=== PATIENT | female | born 1965 | race Asian ===

== ENCOUNTER 2016-12-12 16:18 | Emergency (ER) | payer OTHER ==
[2016-12-12 16:24] VITALS: BP 123/81; PULSE 79; TEMP 97.7; BMI 23.3
--- NOTE | 2016-12-12 16:43 | PDOC ---
History of Present Illness - General History Source: Patient Exam Limitations: No Limitations - History of Present Illness Initial Comments: 12/12/16 17:02 The patient is a 51 year old female, with a significant past medical history of migraines, hypothyroidism, and GERD, who presents to the emergency department complaining of a headache since earlier this afternoon. Patient reports she woke up feeling fine, but while at work she developed a mild headache. Patient reports her headache is dull in nature, bilateral and mainly frontal. Patient reports she tried to have lunch to see if her headache would resolved, but she became nauseous and experienced two emetic episodes(nonbloody/nonbilious). Patient rates her headache a 9/10. She has not taken anything for the pain. She reports she feels cold and mild photophobia, but denies any blurry vision, dizziness, or vertigo. She denies any abdominal pain, diarrhea, constipation, or changes in urination patterns. She denies any recent travel or sick contacts. Allergies: NKDA Past Surgical History: Left ovarian cyst removal Social History: Non smoker. No ETOH or recreational drug use. <Rodolfo Hidalgo - Last Filed: 12/12/16 17:03> <Nuris Morales - Last Filed: 12/12/16 20:05> - General Chief Complaint: Headache Stated Complaint: HEADACHE Past History <Rodolfo Hidalgo - Last Filed: 12/12/16 17:03> - Past Medical History Anemia: No Asthma: No Cancer: No Cardiac Disorders: No CVA: No COPD: No CHF: No Dementia: No Diabetes: No GI Disorders: Yes (GERD) Disorders: No HTN: No Hypercholesterolemia: No Liver Disease: No Seizures: No Thyroid Disease: Yes (hypo) - Surgical History Abdominal Surgery: Yes (left ovarian cyst removed) Appendectomy: No Cardiac Surgery: No Cholecystectomy: No Lung Surgery: No Neurologic Surgery: No Orthopedic Surgery: No - Psycho/Social/Smoking Cessation Hx Anxiety: No Suicidal Ideation: No Smoking Status: No Smoking History: Never smoked Have you smoked in the past 12 months: No Number of Cigarettes Smoked Daily: 0 Hx Alcohol Use: No Drug/Substance Use Hx: No Substance Use Type: None Hx Substance Use Treatment: No <Nuris Morales - Last Filed: 12/12/16 20:05> - Past Medical History Allergies/Adverse Reactions: Allergies Allergy/AdvReac Type Severity Reaction Status Date / Time No Known Drug Allergies Allergy Verified 12/12/16 16:21 Home Medications: Ambulatory Orders Levothyroxine [Synthroid -] 50 mcg PO DAILY 11/30/11 Review of Systems - Review of Systems Able to Perform ROS?: Yes Comments:: 12/12/16 17:02 GENERAL/CONSTITUTIONAL: Yes: +cold. No fever or chills. No weakness. HEAD, EYES, EARS, NOSE AND THROAT: Yes: +photophobia. No ear pain or discharge. No sore throat. CARDIOVASCULAR: No chest pain or shortness of breath. RESPIRATORY: No cough, wheezing, or hemoptysis. GASTROINTESTINAL: Yes: +nausea, +vomiting. No diarrhea or constipation. GENITOURINARY: No dysuria, frequency, or change in urination. MUSCULOSKELETAL: No joint or muscle swelling or pain. No neck or back pain. SKIN: No rash NEUROLOGIC: Yes: +headache. No vertigo, loss of consciousness, or change in strength/sensation. ENDOCRINE: No increased thirst. No abnormal weight change. HEMATOLOGIC/LYMPHATIC: No anemia, easy bleeding, or history of blood clots. ALLERGIC/IMMUNOLOGIC: No hives or skin allergy. <Rodolfo Hidalgo - Last Filed: 12/12/16 17:03> *Physical Exam - Vital Signs Last Vital Signs Temp Pulse Resp BP Pulse Ox 97.7 F 79 18 123/81 100 12/12/16 16:22 12/12/16 16:22 12/12/16 16:22 12/12/16 16:22 12/12/16 16:22 - Physical Exam Comments: 12/12/16 17:02 GENERAL: Awake, alert, and fully oriented, in no acute distress HEAD: No signs of trauma EYES: PERRLA, EOMI, sclera anicteric, conjunctiva clear ENT: Auricles normal inspection, hearing grossly normal, nares patent, oropharynx clear without exudates. Moist mucosa NECK: Normal ROM, supple, no lymphadenopathy, JVD, or masses LUNGS: Breath sounds equal, clear to auscultation bilaterally. No wheezes, and no crackles HEART: Regular rate and rhythm, normal S1 and S2, no murmurs, rubs or gallops ABDOMEN: Soft, nontender, normoactive bowel sounds. No guarding, no rebound. No masses EXTREMITIES: Normal range of motion, no edema. No clubbing or cyanosis. No cords, erythema, or tenderness NEUROLOGICAL: Cranial nerves II through XII grossly intact. Normal speech, normal gait. Nonfocal. No meningeal signs. SKIN: Warm, Dry, normal turgor, no rashes or lesions noted. <Rodolfo Hidalgo - Last Filed: 12/12/16 17:03> - Vital Signs Last Vital Signs Temp Pulse Resp BP Pulse Ox 97.7 F 79 18 123/81 100 12/12/16 16:22 12/12/16 16:22 12/12/16 16:22 12/12/16 16:22 12/12/16 16:22 <Nuris Morales - Last Filed: 12/12/16 20:05> ED Treatment Course - LABORATORY CBC & Chemistry Diagram: 12/12/16 17:50 12/12/16 17:50 <Nuris Morales - Last Filed: 12/12/16 20:05> Medical Decision Making - Medical Decision Making 12/12/16 19:56 a/p: 51yo female gradual onset of pascual today assoc with n/v. Mild photophobia. Neuro intact. Prior head ct without acute findings. Pt without meningeal findings -labs -ivf hydration -meds -re-eval 12/12/16 19:59 re-eval: pt feeling better. Discuss lab results. pt requesting to go home. discussed that pt should follow up with her PMD and with a neurologist. Pt seen in the ED before for headche. Pt agrees with the plan. Pt will be d/c to home. <Nuris Morales - Last Filed: 12/12/16 20:05> *DC/Admit/Observation/Transfer - Attestations Scribe Attestion: 12/12/16 17:02 Documentation prepared by Rodolfo Hidalgo, acting as senior medical writer for Nuris Morales DO. <Rodolfo Hidalgo - Last Filed: 12/12/16 17:03> - Discharge Dispostion Admit: No - Attestations Physician Attestion: 12/12/16 20:05 I, Dr. Nuris Kurkowski, DO, attest that this document has been prepared under my direction and personally reviewed by me in its entirety. I further attest, that it accurately reflects all work, treatment, procedures and medical decision -making performed by me. <Nuris Morales - Last Filed: 12/12/16 20:05> Diagnosis at time of Disposition: Headache - Discharge Dispostion Disposition: HOME Condition at time of disposition: Stable - Referrals Referrals: Maximus Norris MD [Primary Care Provider] - Lauro Begum MD [Staff Physician] - - Patient Instructions Printed Discharge Instructions: DI for Headache Additional Instructions: Please follow up with your PMD and with the neurologist. Please return to the ED with any further concerns. - Post Discharge Activity Work/School Note: Back to Work
[2016-12-12] MEDS ORDERED: SODIUM CHLORIDE 0.9% 1000 ML INFUS.BAG IV ONE (16:44)
[2016-12-12] MEDS ORDERED: METOCLOPRAMIDE HCL INJECTION 10 MG/2 ML VIAL IVPB ONE (16:44)
[2016-12-12] MEDS ORDERED: KETOROLAC TROMETHAMINE 15 MG/ML VIAL IVPUSH ONE (16:56)
[2016-12-12] MEDS ORDERED: METOCLOPRAMIDE HCL INJECTION 10 MG/2 ML VIAL ONE (17:39)
[2016-12-12] MEDS ORDERED: KETOROLAC TROMETHAMINE 15 MG/ML VIAL ONE (17:39)
[2016-12-12 18:15] LABS: BASOPHIL 0.4 % (0-2.0); MCHC 33.6 g/dl (32.0-36.0); MEAN CELL VOLUME 83.3 fl (80-96); MEAN PLT VOLUME 8.8 fl (7.5-11.1); NEUTROPHILS 38.7 % (42.8-82.8); PLATELET COUNT 214 K/MM3 (134-434); RDW 13.9 % (11.6-15.6); WHITE BLOOD COUNT 7.5 K/mm3 (4.0-10.0)
[2016-12-12 18:42] LABS: ALK PHOS 91 U/L (45-117); ANION GAP 10 (8-16); BILIRUBIN,TOTAL 0.4 mg/dL (0.2-1.0); CO2 27 mmol/L (21-32); CREATININE 0.7 mg/dL (0.55-1.02); GLUCOSE,RANDOM 94 mg/dL (74-106); MAGNESIUM 2.2 mg/dL (1.8-2.4); SGOT/AST 21 U/L (15-37); SGPT/ALT 23 U/L (12-78); TOT PROT 7.2 g/dl (6.4-8.2)
== END 2016-12-12 20:13 | disposition home or self-care (01) ==
LOC: JER 16:18
PROC: 3E0333Z Introduction of Anti-inflammatory into Peripheral Vein, Percutaneous Approach (ICD-10-PCS; principal; 2016-12-12)
PROC: 3E033GC Introduction of Other Therapeutic Substance into Peripheral Vein, Percutaneous Approach (ICD-10-PCS; 2016-12-12)
PROC: 3E033GC Introduction of Other Therapeutic Substance into Peripheral Vein, Percutaneous Approach (ICD-10-PCS; 2016-12-12)
DX: R51 Headache (principal); E03.9 Hypothyroidism, unspecified; K21.9 Gastro-esophageal reflux disease without esophagitis; Z86.69 Personal history of other diseases of the nervous system and sense organs
CPT/HCPCS: 36415; 80053; 83735; 85025; 99283-25

== ENCOUNTER 2018-04-03 12:06 | Emergency (ER) | payer OTHER ==
[2018-04-03 12:17] VITALS: BMI 24.7
[2018-04-03] MEDS ORDERED: ACETAMINOPHEN 1000 MG/100 ML VIAL (NON FORMULARY) IVPB ONE (12:25)
[2018-04-03] MEDS ORDERED: SODIUM CHLORIDE 1,000 ML IV STA (12:25)
[2018-04-03] MEDS ORDERED: FAMOTIDINE 20 MG/50 ML IVPB 20 MG/50 ML MG IVPB ONE ×2 (12:25→12:45)
[2018-04-03] MEDS ORDERED: ONDANSETRON 4 MG/2 ML VIAL IVPUSH ONE (12:26)
--- NOTE | 2018-04-03 12:40 | PDOC ---
Attending Attestation - Resident Resident Name: DesireemaryJordan - ED Attending Attestation I have performed the following: I have examined & evaluated the patient, The case was reviewed & discussed with the resident, I agree w/resident's findings & plan, Exceptions are as noted - Physicial Exam PE: 04/03/18 13:53 GENERAL: The patient is awake, alert, and fully oriented, Nontoxic - in no acute distress. HEAD: Normocephalic, atraumatic. EYES: extraocular movements intact, sclera anicteric, conjunctiva clear. ENT: Normal voice, Moist mucous membranes. NECK: Normal range of motion, supple LUNGS: Breath sounds equal, clear to auscultation bilaterally. No wheezes, no rhonchi, no rales. HEART: Regular rate and rhythm, normal S1 and S2 without murmur, rub or gallop. ABDOMEN: Soft, nontender, No guarding, no rebound. . No CVA tenderness EXTREMITIES: Normal range of motion, no edema. No clubbing or cyanosis. No cords, erythema, or tenderness. NEUROLOGICAL: No facial assymetry, Normal speech, moving all 4 extremities spontaneously and symmetrically PSYCH: Normal mood, normal affect. SKIN: Warm, Dry, normal turgor, - Medical Decision Making 04/03/18 13:04 52y F no known pmhx presents with complaint of lightheadedness and vomiting since arriving to work today w/o other symptoms such as fever/chills, abd pain, cp, sob, dirarhea, melena, bpr, hematemsis. on exam pt in no distress suspect enteritis/gerd/early gastro will ck labs, lytes, zofran/fluids will reassess A portion of this note was documented by scribe services under my direction. I have reviewed the details of the note, within reason, and agree with the documentation with the following case summary and management plan written by me <Kobe Travis - Last Filed: 04/03/18 13:53> - HPI HPI: 04/03/18 14:03 Patient is a 52 year old female, employee at [employer], with history of hypothyroidism, migraines, and GERD who presents to the ED with complaints of nausea and vomiting that began upon coming into work this morning. The patient reports 5 episodes of nonbloody, nonbilious emesis as well as a diffuse abdominal pain that occurs when she vomits. She reports associated body aches and lightheadedness but denies any syncope, room spinning dizziness, blurred vision, numbness or tingling. Denies any diarrhea. She denies any fevers recent travel, or sick contacts. She denies any chest pain, shortness of breath, cough , or urinary complaints. - Medical Decision Making 04/03/18 14:03 Documentation prepared by Leyla Petersen, acting as medical accounting clerk for Kobe Travis MD. <Leyla Petersen - Last Filed: 04/03/18 14:03> Heart Score/ECG Review - ECG Impressions Comment:: 04/03/18 14:01 Twelve-lead EKG was performed and reviewed by me. There is normal sinus rhythm with a normal rate. Rate of 77 first degree AV block No ST changes suggestive of acute ischemia <Kobe Travis - Last Filed: 04/03/18 13:53>
[2018-04-03] MEDS ORDERED: ACETAMINOPHEN INJECTION 100 ML IVPB ONE (12:45)
--- NOTE | 2018-04-03 12:48 | PDOC ---
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 The abdominal pain is diffuse but worse in the upper region of the abdomen. She rates the pain as 8/ 10 and describes the quality as stabbing in nature. She was last well this morning when she woke up at 6 am. Then she came to work and started feeling extremely nauseous, started vomiting and came to the ED. This has never happened to her in the past. The pain does not radiate to the shoulder or back and has been staying relatively constant since its onset. She has not been able to eat or drink since the nausea, vomiting, and abdominal pain began. She feels dehydrated and has a mild headache. She endorses significant chills, body aches , and muscle pain today but denies any fevers. She denies having any chest pain, SOB, difficulty breathing, recent fevers, or infections, neck pain, blurry vision, dysuria, frequency, urgency, leg pain, back pain, or recent travel. PCP: Maximus Norris PSH: Left ovarian cyst removal Social Hx: Denies smoking, drinking, or other substance usage. Allergies: NKA, NKDA Past History - Past Medical History Allergies/Adverse Reactions: Allergies Allergy/AdvReac Type Severity Reaction Status Date / Time No Known Drug Allergies Allergy Verified 04/03/18 12:16 Home Medications: Ambulatory Orders Levothyroxine [Synthroid -] 50 mcg PO DAILY 11/30/11 Anemia: No Asthma: No Cancer: No Cardiac Disorders: No CVA: No COPD: No CHF: No Dementia: No Diabetes: No GI Disorders: Yes (GERD) Disorders: No HTN: No Hypercholesterolemia: No Liver Disease: No Seizures: No Thyroid Disease: Yes (hypo) - Surgical History Abdominal Surgery: Yes (left ovarian cyst removed) Appendectomy: No Cardiac Surgery: No Cholecystectomy: No Lung Surgery: No Neurologic Surgery: No Orthopedic Surgery: No - Immunization History Immunization Up to Date: Yes - Suicide/Smoking/Psychosocial Hx Smoking Status: No Smoking History: Never smoked Have you smoked in the past 12 months: No Number of Cigarettes Smoked Daily: 0 Hx Alcohol Use: No Drug/Substance Use Hx: No Substance Use Type: None Hx Substance Use Treatment: No Review of Systems - Review of Systems Able to Perform ROS?: Yes Comments:: CONSTITUTIONAL: Present: Chills Absent: fever, no fatigue EYES: Absent: visual changes ENT: Absent: ear pain, no sore throat CARDIOVASCULAR: Absent: chest pain, no palpitations RESPIRATORY: Absent: cough, no SOB GI: Present: Abdominal pain, nausea, vomiting Absent: no constipation, no diarrhea GENITOURINARY: Absent: dysuria, no frequency, no hematuria MUSKULOSKELETAL: Present: myalgia Absent: back pain, no arthralgia SKIN: Absent: rash NEURO: Absent: headache *Physical Exam - Vital Signs Last Vital Signs Temp Pulse Resp BP Pulse Ox 97.7 F 93 H 22 H 129/89 99 04/03/18 12:16 04/03/18 12:16 04/03/18 12:16 04/03/18 12:16 04/03/18 12:16 - Physical Exam Comments: GENERAL: Well-appearing, well-nourished. Moderate distress. Vomiting actively at bedside. HEENT: Normocephalic, atraumatic. PERRL, EOM intact. CARDIOVASCULAR: Normal S1, S2. Regular rate and rhythm. PULMONARY: Clear to auscultation bilaterally. ABDOMEN: + espinoza sign, mild suprapubic TTP. Otherwise abdomen is Soft, non-distended, and non-tender in other regions. EXTREMITIES: Normal ROM in all four extremities. No gross deformities. SKIN: Warm, dry. No rash NEUROLOGICAL: No focal neurological deficits. 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 +espinoza sign + Suprapubic TTP - chills, body aches DDx IBNLT: Gastroenteritis, cholecystitis, gallstones, pancreatitis, gastritis, GERD, PUD, UTI, food poisoning, dehydration, influenza Plan: Cbc, Cmp, lipase, Hcg, UA, ekg, RUQ US, Flu swab, IV hydration, acetaminophen, zofran, pepcid, re-assess. Labs unremarkable and WNL US showed no abnormalities. Patient feels much better after fluids and meds. This is likely a gastroenteritis picture. Will DC with sabrina, PCP FU and return precautions. *DC/Admit/Observation/Transfer Diagnosis at time of Disposition: Gastroenteritis - Discharge Dispostion Disposition: HOME Condition at time of disposition: Improved Decision to Admit order: No - Referrals Referrals: Maximus Norris MD [Primary Care Provider] - - Patient Instructions Printed Discharge Instructions: DI for Viral Gastroenteritis -- Adult Additional Instructions: You came into the ER with abdominal pain, nausea, and vomiting. We believe you are experiencing food poisoning. We looked at your blood and urine and found no abnormalities. We also looked at your abdomen with an ultrasound and found no abnormalities. Drink plenty of fluids. Take advil, motrin, ibuprofen or tylenol for pain control. Make sure to schedule a follow up Appt with your PCP in the next 3 to 5 days to make sure you are getting better. We are sending zofran to your pharmacy to help with your nausea. Please make sure to go and pick it up. Please come back to the ER if your pain worsens, you can't stop vomiting, get a fever or have any other new or worsening concerns. Thank you for coming to the [facility] ER. We hope you feel better soon! Print Language: PASHTO - Post Discharge Activity
[2018-04-03 12:52] LABS: BASO % 0.6 % (0-2.0); EOS % 0.3 % (0-4.5); HEMATOCRIT 41.2 % (32.4-45.2); HEMOGLOBIN 13.6 GM/dL (10.7-15.3); LYMPH % 23.5 % (8-40); MCH 27.4 pg (25.7-33.7); MCHC 32.9 g/dl (32.0-36.0); MEAN CELL VOLUME 83.3 fl (80-96); MEAN PLT VOLUME 7.9 fl (7.5-11.1); MONO % 4.6 % (3.8-10.2); PLATELET COUNT 252 K/MM3 (134-434); RBC 4.94 M/mm3 (3.60-5.2); RDW 13.8 % (11.6-15.6)
[2018-04-03 13:06] LABS: ALBUMIN 4.4 g/dl (3.4-5.0); ALK PHOS 104 U/L (45-117); ANION GAP 8 MMOL/L (8-16); BILIRUBIN,TOTAL 0.6 mg/dL (0.2-1); BLOOD UREA NITROGEN 9 mg/dL (7-18); CALCIUM 9.4 mg/dL (8.5-10.1); CHLORIDE 101 mmol/L (98-107); CO2 28 mmol/L (21-32); CREATININE 0.8 mg/dL (0.55-1.3); GLUCOSE,RANDOM 103 mg/dL (74-106); LIPASE 147 U/L (73-393); POTASSIUM 3.9 mmol/L (3.5-5.1); SGOT/AST 26 U/L (15-37); SGPT/ALT 28 U/L (13-61); SODIUM 137 mmol/L (136-145); TOT PROT 8.2 g/dl (6.4-8.2)
[2018-04-03] MEDS ORDERED: ONDANSETRON 4 MG/2 ML VIAL ONE (13:15)
[2018-04-03] MEDS ORDERED: SODIUM CHLORIDE 0.9% 500 ML INFUS.BAG IV ONE (14:06)
[2018-04-03 16:04] VITALS: TEMP 97.8
[2018-04-03 17:12] VITALS: BP 107/68; PULSE 72
--- NOTE | 2018-04-04 19:02 | EKG ---
Test Reason : Blood Pressure : / mmHG Vent. Rate : 077 BPM Atrial Rate : 077 BPM P-R Int : 228 ms QRS Dur : 088 ms QT Int : 378 ms P-R-T Axes : 059 033 034 degrees QTc Int : 427 ms SINUS RHYTHM WITH 1ST DEGREE A-V BLOCK LOW VOLTAGE QRS BORDERLINE ECG WHEN COMPARED WITH ECG OF 07-DEC-2002 18:34, [place] INTERVAL HAS INCREASED Confirmed by SHUN STEARNS MD ([id number]) on 04/04/2018 7:02:02 PM Referred By: Confirmed By:SHUN STEARNS MD
== END 2018-04-03 17:12 | disposition home or self-care (01) ==
LOC: JER 12:06
PROC: 3E0337Z Introduction of Electrolytic and Water Balance Substance into Peripheral Vein, Percutaneous Approach (ICD-10-PCS; principal; 2018-04-03)
PROC: 3E033GC Introduction of Other Therapeutic Substance into Peripheral Vein, Percutaneous Approach (ICD-10-PCS; 2018-04-03)
PROC: 3E033GC Introduction of Other Therapeutic Substance into Peripheral Vein, Percutaneous Approach (ICD-10-PCS; 2018-04-03)
PROC: 3E033NZ Introduction of Analgesics, Hypnotics, Sedatives into Peripheral Vein, Percutaneous Approach (ICD-10-PCS; 2018-04-03)
DX: K52.9 Noninfective gastroenteritis and colitis, unspecified (principal); K21.9 Gastro-esophageal reflux disease without esophagitis; E03.9 Hypothyroidism, unspecified; G43.909 Migraine, unspecified, not intractable, without status migrainosus
CPT/HCPCS: 36415; 76705-TC; 80053; 83690; 84484; 85025; 93005; 93010; 99282-25; J0131; J7030

== ENCOUNTER 2018-04-06 10:23 | Emergency (ER) | payer OTHER ==
[2018-04-06 10:36] VITALS: BMI 23.2
--- NOTE | 2018-04-06 11:09 | PDOC ---
*Physical Exam - Vital Signs Last Vital Signs Temp Pulse Resp BP Pulse Ox 97.8 F 76 17 128/80 100 04/06/18 10:33 04/06/18 10:33 04/06/18 10:33 04/06/18 10:33 04/06/18 10:33 ED Treatment Course - LABORATORY CBC & Chemistry Diagram: 04/06/18 11:40 04/06/18 11:40 Medical Decision Making - Medical Decision Making 04/06/18 11:09 Ms Canales is a 52 yo F presenting to the ER from PMDs office due to headache She has a h/o migraines (which she gets once per year), hypothyroidism She has had a waxing and waning headache for the past 3 days No fever No nuchal rigidity No head trauma No sinus congestion or facial tenderness (+) photophobia, phonophobia and nausea. Pt seen by Midlevel Provider under my direct supervision Pt interviewed and examined Ancillary studies reviewed I agree with plan as outlined by Midlevel Provider 04/06/18 13:51 04/06/18 14:05 Upon my assessment, pt states her headache has resolved, 0/10 No neck pain Symptoms have resolved Pt PMD requesting that she be started on Fiorecet return precautions given *DC/Admit/Observation/Transfer Diagnosis at time of Disposition: Headache - Discharge Dispostion Disposition: HOME Condition at time of disposition: Stable - Prescriptions Prescriptions: Acetaminophen/Caffeine/Butalb [Fioricet -] 1 tab PO Q6H #16 tablet MDD 4 Ondansetron [Zofran Odt -] 4 mg SL TID #10 od.tablet - Referrals Referrals: Harshil Alonso DO [Staff Physician] - Maximus Norris MD [Primary Care Provider] - - Patient Instructions Printed Discharge Instructions: DI for Migraine Additional Instructions: You were evaluated for your headache today. Your CAT scan was normal. Please take the Fioricet as prescribed to help with her pain. You may take Zofran every 8 hours as needed for nausea. Drink plenty of fluids and get plenty of rest. Follow-up with her primary care doctor this week. Also please make an appointment with neurology for further investigation of your headaches. A referral has been provided. Return to the emergency department for worsening headache despite treatment, increased nausea or vomiting, weakness, gait changes, or if you have any changes in your symptoms. - Post Discharge Activity Forms/Work/School Notes: Back to Work
--- NOTE | 2018-04-06 11:23 | PDOC ---
History of Present Illness - General Chief Complaint: Weakness Stated Complaint: Migraine Headache/WEAKNESS Time Seen by Provider: 04/06/18 11:03 History Source: Patient Exam Limitations: No Limitations - History of Present Illness Initial Comments: 04/06/18 13:26 Patient is a 52-year-old female with past medical history of migraines, hypothyroidism, who presents to the emergency department today for headache for 3 days. Patient was seen in our emergency department 4 days ago with nausea vomiting and similar headache. Patient states that the headache is all along the left side. She states she gets migraines approximately once a year. Admits to photophobia, phonophobia and nausea. Denies fevers, neck pain, congestion, sore throat, difficulty breathing, shortness of breath, vomiting and diarrhea. Past History - Travel Traveled outside of the country in the last 30 days: No Close contact w/someone who was outside of country & ill: No - Past Medical History Allergies/Adverse Reactions: Allergies Allergy/AdvReac Type Severity Reaction Status Date / Time No Known Drug Allergies Allergy Verified 04/03/18 12:16 Home Medications: Ambulatory Orders Levothyroxine [Synthroid -] 50 mcg PO DAILY 11/30/11 Ondansetron [Zofran -] 4 mg PO TID #21 tablet 04/03/18 Acetaminophen/Caffeine/Butalb [Fioricet -] 1 tab PO Q6H #16 tablet MDD 4 Ondansetron [Zofran Odt -] 4 mg SL TID #10 od.tablet 04/06/18 Anemia: No Asthma: No Cancer: No Cardiac Disorders: No CVA: No COPD: No CHF: No Dementia: No Diabetes: No GI Disorders: Yes (GERD) Disorders: No HTN: No Hypercholesterolemia: No Liver Disease: No Seizures: No Thyroid Disease: Yes (hypo) - Surgical History Abdominal Surgery: Yes (left ovarian cyst removed) Appendectomy: No Cardiac Surgery: No Cholecystectomy: No Lung Surgery: No Neurologic Surgery: No Orthopedic Surgery: No - Immunization History Immunization Up to Date: Yes - Suicide/Smoking/Psychosocial Hx Smoking Status: No Smoking History: Never smoked Have you smoked in the past 12 months: No Number of Cigarettes Smoked Daily: 0 Hx Alcohol Use: No Drug/Substance Use Hx: No Substance Use Type: None Hx Substance Use Treatment: No Review of Systems - Review of Systems Able to Perform ROS?: Yes Comments:: 04/06/18 13:26 CONSTITUTIONAL: Absent: fever, chills, diaphoresis, generalized weakness, malaise, loss of appetite HEENT: Absent: rhinorrhea, nasal congestion, throat pain, throat swelling, difficulty swallowing, mouth swelling, ear pain, eye pain, visual Changes CARDIOVASCULAR: Absent: chest pain, loss of consciousness, palpitations, irregular heart rate, peripheral edema RESPIRATORY: Absent: cough, shortness of breath, dyspnea with exertion, orthopnea, wheezing, stridor, hemoptysis GASTROINTESTINAL: Absent: abdominal pain, abdominal distension, nausea, vomiting, diarrhea, constipation, melena, hematochezia GENITOURINARY: Absent: dysuria, frequency, urgency, hesitancy, hematuria, flank pain, genital pain MUSCULOSKELETAL: Absent: myalgia, arthralgia, joint swelling SKIN: Absent: rash, itching, pallor HEMATOLOGIC/IMMUNOLOGIC: Absent: easy bleeding, easy bruising, lymphadenopathy, frequent infections ENDOCRINE: Absent: unexplained weight gain, unexplained weight loss, heat intolerance, cold intolerance NEUROLOGIC: Present: headache Absent: headache, focal weakness or paresthesias, dizziness, unsteady gait, seizure, mental status changes, bladder or bowel incontinence PSYCHIATRIC: Absent: anxiety, depression, suicidal or homicidal ideation, hallucinations. Is the patient limited Arabic proficient: No *Physical Exam - Vital Signs Last Vital Signs Temp Pulse Resp BP Pulse Ox 97.8 F 76 17 128/80 100 04/06/18 10:33 04/06/18 10:33 04/06/18 10:33 04/06/18 10:33 04/06/18 10:33 - Physical Exam Comments: 04/06/18 13:26 GENERAL: Well developed, well nourished. Awake and alert. No acute distress. HEENT: Normocephalic, atraumatic. PERRLA, EOMI. No conjunctival pallor. Sclera are non- icteric. Moist mucous membranes. Oropharynx is clear. NECK: Supple. Full ROM. No JVD. Carotid pulses 2+ and symmetric, without bruits. No thyromegaly. No lymphadenopathy. CARDIOVASCULAR: Regular rate and rhythm. No murmurs, rubs, or gallops. Distal pulses are 2+ and symmetric. PULMONARY: No evidence of respiratory distress. Lungs clear to auscultation bilaterally. No wheezing, rales or rhonchi. ABDOMINAL: Soft. Non-tender. Non-distended. No rebound or guarding. No organomegaly. Normoactive bowel sounds. MUSCULOSKELETAL Normal range of motion at all joints. No bony deformities or tenderness. No CVA tenderness. EXTREMITIES: No cyanosis. No clubbing. No edema. No calf tenderness. SKIN: Warm and dry. Normal capillary refill. No rashes. No jaundice. NEUROLOGICAL: Alert, awake, appropriate. Cranial nerves 2-12 intact. No deficits to light touch and temperature in face, upper extremities and lower extremities. No motor deficits in the in face, upper extremities and lower extremities. Normoreflexic in the upper and lower extremities. Normal speech. Toes are down- going bilaterally. Gait is normal without ataxia. PSYCHIATRIC: Cooperative. Good eye contact. Appropriate mood and affect. Moderate Sedation - Procedure Monitoring Vital Signs: Procedure Monitoring Vital Signs Temperature 97.8 F 04/06/18 10:33 Pulse Rate 76 04/06/18 10:33 Respiratory Rate 17 04/06/18 10:33 Blood Pressure 128/80 04/06/18 10:33 O2 Sat by Pulse Oximetry (%) 100 04/06/18 10:33 ED Treatment Course - LABORATORY CBC & Chemistry Diagram: 04/06/18 11:40 04/06/18 11:40 Medical Decision Making - Medical Decision Making 04/06/18 13:13 Patient is a 52-year-old female with past medical history of migraines, hypothyroidism, who presents to the emergency department today for headache for 3 days. Patient was seen in our emergency department 4 days ago with nausea vomiting and similar headache. On exam patient is neurologically intact with no focal deficits. Reglan, Benadryl, IV Tylenol, IV fluids given empirically for migraine. Patient sent for CAT scan as per her primary care doctor. CAT scan is unremarkable at this time. No evidence of bleed, infarction, ischemia. Influenza negative. Patient reports total relief of her headache at this time. Asking for discharge. Discharge home with neurology follow-up. Eloisa sent to pharmacy. I discussed the physical exam findings, ancillary test results and final diagnoses with the patient. I answered all of the patient's questions. The patient was satisfied with the care received and felt comfortable with the discharge plan and treatment plan. The Patient agrees to follow up with the primary care physician/specialist within 24-72 hours. Return precautions were given. *DC/Admit/Observation/Transfer Diagnosis at time of Disposition: Headache Qualifiers: Headache type: unspecified Headache chronicity pattern: acute headache Intractability: not intractable Qualified Code(s): R51 - Headache - Discharge Dispostion Disposition: HOME Condition at time of disposition: Stable Decision to Admit order: No - Prescriptions Prescriptions: Acetaminophen/Caffeine/Butalb [Fioricet -] 1 tab PO Q6H #16 tablet MDD 4 Ondansetron [Zofran Odt -] 4 mg SL TID #10 od.tablet - Referrals Referrals: Maximus Norris MD [Primary Care Provider] - Harshil Alonso DO [Staff Physician] - - Patient Instructions Printed Discharge Instructions: DI for Migraine Additional Instructions: You were evaluated for your headache today. Your CAT scan was normal. Please take the Fioricet as prescribed to help with her pain. You may take Zofran every 8 hours as needed for nausea. Drink plenty of fluids and get plenty of rest. Follow-up with her primary care doctor this week. Also please make an appointment with neurology for further investigation of your headaches. A referral has been provided. Return to the emergency department for worsening headache despite treatment, increased nausea or vomiting, weakness, gait changes, or if you have any changes in your symptoms. - Post Discharge Activity Forms/Work/School Notes: Back to Work
[2018-04-06] MEDS ORDERED: SODIUM CHLORIDE 1,000 ML IV STA (11:24)
[2018-04-06] MEDS ORDERED: ACETAMINOPHEN 1000 MG/100 ML VIAL (NON FORMULARY) IVPB ONE (11:24)
[2018-04-06] MEDS ORDERED: METOCLOPRAMIDE HCL INJECTION 10 MG/2 ML VIAL IVPB ONE (11:24)
[2018-04-06] MEDS ORDERED: METOCLOPRAMIDE HCL INJECTION 10 MG/2 ML VIAL ONE (11:33)
[2018-04-06] MEDS ORDERED: ACETAMINOPHEN INJECTION 100 ML IVPB ONE (11:33)
[2018-04-06 12:14] LABS: BASO % 0.6 % (0-2.0); HEMOGLOBIN 12.5 GM/dL (10.7-15.3); LYMPH % 34.4 % (8-40); MCH 28.7 pg (25.7-33.7); MCHC 34.8 g/dl (32.0-36.0); MEAN CELL VOLUME 82.3 fl (80-96); MEAN PLT VOLUME 8.2 fl (7.5-11.1); PLATELET COUNT 261 K/MM3 (134-434); RBC 4.37 M/mm3 (3.60-5.2); RDW 13.7 % (11.6-15.6); WHITE BLOOD COUNT 7.2 K/mm3 (4.0-10.0)
[2018-04-06 12:15] LABS: ALBUMIN 3.7 g/dl (3.4-5.0); ALK PHOS 87 U/L (45-117); ANION GAP 5 MMOL/L (8-16); BILIRUBIN,TOTAL 0.5 mg/dL (0.2-1); BLOOD UREA NITROGEN 8 mg/dL (7-18); CALCIUM 8.6 mg/dL (8.5-10.1); CHLORIDE 104 mmol/L (98-107); CO2 28 mmol/L (21-32); CREATININE 0.6 mg/dL (0.55-1.3); GLUCOSE,RANDOM 87 mg/dL (74-106); POTASSIUM 3.7 mmol/L (3.5-5.1); SGOT/AST 18 U/L (15-37); SGPT/ALT 21 U/L (13-61); SODIUM 138 mmol/L (136-145)
[2018-04-06 13:10] VITALS: BP 110/76; PULSE 74; TEMP 98.4
== END 2018-04-06 13:35 | disposition home or self-care (01) ==
LOC: JER 10:23
PROC: 3E033GC Introduction of Other Therapeutic Substance into Peripheral Vein, Percutaneous Approach (ICD-10-PCS; principal; 2018-04-06)
PROC: 3E033GC Introduction of Other Therapeutic Substance into Peripheral Vein, Percutaneous Approach (ICD-10-PCS; 2018-04-06)
PROC: 3E033NZ Introduction of Analgesics, Hypnotics, Sedatives into Peripheral Vein, Percutaneous Approach (ICD-10-PCS; 2018-04-06)
DX: R51 Headache (principal); E03.9 Hypothyroidism, unspecified; G43.909 Migraine, unspecified, not intractable, without status migrainosus
CPT/HCPCS: 36415; 70450-TC; 80053; 84702; 85025; 87804; 99283-25; J0131; J7030

== ENCOUNTER 2019-04-02 15:40 | Emergency (ER) | payer OTHER ==
[2019-04-02 16:03] VITALS: BMI 23.2
[2019-04-02] MEDS ORDERED: ONDANSETRON *ODT* 4 MG TABLET SL ONE (16:13)
[2019-04-02] MEDS ORDERED: ONDANSETRON *ODT* 4 MG TABLET ONE (16:14)
[2019-04-02] MEDS ORDERED: IBUPROFEN 600 MG TABLET (FP) PO ONE ×2 (16:14→17:11)
--- NOTE | 2019-04-02 16:23 | PDOC ---
History of Present Illness - General Chief Complaint: Nausea/Vomiting Stated Complaint: Cold Symptoms Time Seen by Provider: 04/02/19 16:12 History Source: Patient Exam Limitations: No Limitations - History of Present Illness Initial Comments: 04/02/19 16:00 53-year-old female presents to ED with complaints of nausea vomiting body aches dry cough, and myalgias since this a.m. Patient took nothing for the above and came to work here at [employer]. Patient does state history of hypothyroidism but no other complaints at this time. Is this a multiple visit Asthma Patient?: No Timing/Duration: 4-6 hours Severity: moderate Associated Symptoms: reports: fever/chills, nausea/vomiting, weakness Past History - Travel Traveled outside of the country in the last 30 days: No Close contact w/someone who was outside of country & ill: No - Past Medical History Allergies/Adverse Reactions: Allergies Allergy/AdvReac Type Severity Reaction Status Date / Time No Known Drug Allergies Allergy Verified 04/02/19 15:58 Home Medications: Ambulatory Orders Levothyroxine [Synthroid -] 50 mcg PO DAILY 11/30/11 Anemia: No Asthma: No Cancer: No Cardiac Disorders: No CVA: No COPD: No CHF: No Dementia: No Diabetes: No GI Disorders: Yes (GERD) Disorders: No HTN: No Hypercholesterolemia: No Liver Disease: No Seizures: No Thyroid Disease: Yes (hypo) - Surgical History Abdominal Surgery: Yes (left ovarian cyst removed) Appendectomy: No Cardiac Surgery: No Cholecystectomy: No Lung Surgery: No Neurologic Surgery: No Orthopedic Surgery: No - Immunization History Immunization Up to Date: Yes - Psycho Social/Smoking Cessation Hx Smoking Status: No Smoking History: Never smoked Have you smoked in the past 12 months: No Number of Cigarettes Smoked Daily: 0 Hx Alcohol Use: No Drug/Substance Use Hx: No Substance Use Type: None Hx Substance Use Treatment: No Patient Lives Alone: No Lives with/in: spouse/SO Review of Systems - Review of Systems Able to Perform ROS?: No Constitutional: Yes: Chills, Weakness. No: Loss of Appetite HEENTM: No: Symptoms Reported Respiratory: Yes: Cough Cardiac (ROS): No: Symptoms Reported ABD/GI: Yes: Nausea, Vomiting Musculoskeletal: Yes: Joint Pain, Muscle Pain Integumentary: No: Symptoms Reported Neurological: No: Symptoms reported Endocrine: No: Symptoms Reported Hematologic/Lymphatic: No: Symptoms Reported *Physical Exam - Vital Signs Last Vital Signs Temp Pulse Resp BP Pulse Ox 98.9 F 86 17 121/83 100 04/02/19 15:58 04/02/19 15:58 04/02/19 15:58 04/02/19 15:58 04/02/19 15:58 - Physical Exam General Appearance: Yes: Nourished, Appropriately Dressed. No: Apparent Distress HEENT: positive: Pharynx Normal. negative: Pale Conjunctivae Neck: positive: Supple Respiratory/Chest: positive: Lungs Clear, Normal Breath Sounds. negative: Respiratory Distress, Accessory Muscle Use Cardiovascular: positive: Regular Rhythm, Regular Rate. negative: Murmur Extremity: positive: Normal Inspection Integumentary: positive: Normal Color, Warm, Moist Neurologic: positive: Motor Strength 5/5 Medical Decision Making - Medical Decision Making 04/02/19 16:01 Chief complaint: Myalgia, chills, headache sore throat and cough since this a.m. Patient is an employee here at [facility] and took no medications for the above complaints. Exam: Vital signs stable patient appears uncomfortable complaining of myalgia and nausea. Plan: Influenza Motrin and Zofran ordered 04/02/19 17:35 Selected Entries 04/02/19 15:58 Temperature 98.9 F Pulse Rate 86 Respiratory 17 Rate Blood Pressure 121/83 O2 Sat by Pulse 100 Oximetry (%) Weight 59.421 kg Laboratory Tests 04/02/19 16:20 Influenza A (Rapid) Negative Influenza B (Rapid) Negative 04/02/19 17:42 Patient states feeling better. Will discharge patient home with recommendations to rest drink plenty of fluids and take Zofran as needed. Discharge - Discharge Information Problems reviewed: Yes Clinical Impression/Diagnosis: Nausea & vomiting Condition: Improved Disposition: HOME - Follow up/Referral - Patient Discharge Instructions Patient Printed Discharge Instructions: DI for Vomiting -- Adult Additional Instructions: Please avoid spicy greasy food drink plenty of fluids and take Zofran as needed for nausea. Follow clear liquids today and bland diet tomorrow - Post Discharge Activity
[2019-04-02 18:12] VITALS: BP 114/55; PULSE 76; TEMP 98.3
== END 2019-04-02 18:12 | disposition home or self-care (01) ==
LOC: JER 15:40
DX: R11.2 Nausea with vomiting, unspecified (principal); K21.9 Gastro-esophageal reflux disease without esophagitis; E03.9 Hypothyroidism, unspecified
CPT/HCPCS: 87804; 99283-25; Q0162

== ENCOUNTER 2022-03-28 18:50 | Emergency (ER) | payer OTHER ==
[2022-03-28 19:00] VITALS: BP 122/81; PULSE 74; RESP 18; TEMP 98.6; BMI 23.3
[2022-03-28] MEDS ORDERED: ONDANSETRON 4 MG/2 ML VIAL IVPB ONE (20:20)
[2022-03-28] MEDS ORDERED: ACETAMINOPHEN 1000 MG/100 ML BAG IVPB ONE (20:20)
[2022-03-28] MEDS ORDERED: ONDANSETRON 4 MG/2 ML VIAL ONE (20:21)
[2022-03-28] MEDS ORDERED: ACETAMINOPHEN INJECTION 100 ML IVPB ONE (20:21)
[2022-03-28 21:07] LABS: EOS % 3.3 % (0-4.5); HEMATOCRIT 39.9 % (32.4-45.2); LYMPH % 48.5 % (8-40); MCH 27.6 pg (25.7-33.7); MCHC 32.6 g/dl (32.0-36.0); MEAN CELL VOLUME 84.9 fl (80-96); MEAN PLT VOLUME 8.5 fl (7.5-11.1); MONO % 7.5 % (3.8-10.2); NEUT % 39.7 % (42.8-82.8); PLATELET COUNT 251 10^3/uL (134-434); RBC 4.71 M/mm3 (3.60-5.2); RDW 14.6 % (11.6-15.6)
[2022-03-28 21:41] LABS: CALCIUM 9.2 mg/dL (8.5-10.1)
[2022-03-28 21:42] LABS: ALBUMIN 3.9 g/dl (3.4-5.0); BLOOD UREA NITROGEN 17.7 mg/dL (7-18)
[2022-03-28 21:45] LABS: CREATININE 0.8 mg/dL (0.55-1.3)
[2022-03-28 21:47] LABS: BILIRUBIN,TOTAL 0.6 mg/dL (0.2-1); TOT PROT 7.5 g/dl (6.4-8.2)
[2022-03-29 00:17] LABS: ERYTHROCYTE SEDIMENTATION RATE 10 mm/hr (0-30)
== END 2022-03-28 23:43 | disposition home or self-care (01) ==
LOC: JER 18:50
PROC: 3E0333Z Introduction of Anti-inflammatory into Peripheral Vein, Percutaneous Approach (ICD-10-PCS; principal; 2022-03-28)
DX: R51.9 Headache, unspecified (principal)
CPT/HCPCS: 36415; 70450-TC; 80053; 85025; 85651; 93005; 93010; 99285-25

== ENCOUNTER 2022-08-26 04:23 | Day surgery (SDC) | payer OTHER ==
[2022-08-25 12:22] VITALS: BMI 23.3
[2022-08-26 10:36] VITALS: TEMP 98
[2022-08-26 11:37] VITALS: BP 119/79; PULSE 66; RESP 13
== END 2022-08-26 11:37 | disposition home or self-care (01) ==
LOC: JASU-ENDO 04:23
PROVIDERS: ATTEND Internal Medicine Gastroenterology
PROC: 0DB78ZX Excision of Stomach, Pylorus, Via Natural or Artificial Opening Endoscopic, Diagnostic (ICD-10-PCS; 2022-08-26)
PROC: 0DB28ZX Excision of Middle Esophagus, Via Natural or Artificial Opening Endoscopic, Diagnostic (ICD-10-PCS; 2022-08-26)
PROC: 0DB38ZX Excision of Lower Esophagus, Via Natural or Artificial Opening Endoscopic, Diagnostic (ICD-10-PCS; 2022-08-26)
PROC: 0DB98ZX Excision of Duodenum, Via Natural or Artificial Opening Endoscopic, Diagnostic (ICD-10-PCS; principal; 2022-08-26 09:30)
DX: K21.00 Gastro-esophageal reflux disease with esophagitis, without bleeding (principal); K29.50 Unspecified chronic gastritis without bleeding; K31.89 Other diseases of stomach and duodenum
CPT/HCPCS: 88305-TC; 88342-TC

== ENCOUNTER 2023-05-15 18:22 | Emergency (ER) | payer OTHER ==
[2023-05-15 18:44] VITALS: TEMP 98.6; BMI 23.3
[2023-05-15 19:39] LABS: EPI CELLS 5 /uL (0-25.1); HYALINE CASTS 0 /uL (0-3.1); PH,URINE 7.5 (5.0-8.0); URINE APPEARANCE CLEAR; URINE BACTERIA 15 /uL (0-1359); URINE BILIRUBIN NEGATIVE (NEGATIVE); URINE COLOR YELLOW; URINE GLUCOSE (UA) NEGATIVE (NEGATIVE); URINE KETONE NEGATIVE (NEGATIVE); URINE LEUK ESTERASE 1+ (NEGATIVE); URINE NITRITE NEGATIVE (NEGATIVE); URINE PROTEIN NEGATIVE (NEGATIVE); URINE RBC 19 /uL (0-23.9); URINE UROBILINOGEN 0.2 mg/dL (0.2-1.0); URINE WBC 47 /uL (0-25.8)
[2023-05-15] MEDS ORDERED: ACETAMINOPHEN INJECTION 100 ML IVPB ONE (19:58)
[2023-05-15] MEDS: SODIUM CHLORIDE 0.9% 500 ML INFUS.BAG IV ONE (20:05)
[2023-05-15] MEDS: ACETAMINOPHEN 1000 MG/100 ML BAG IVPB ONE (20:05)
[2023-05-15 20:13] LABS: BASO % 0.5 % (0-2.0); EOS % 0.6 % (0-4.5); HEMATOCRIT 39.4 % (32.4-45.2); HEMOGLOBIN 13.2 GM/dL (10.7-15.3); LYMPH % 24.9 % (8-40); MCH 28.1 pg (25.7-33.7); MCHC 33.5 g/dl (32.0-36.0); MEAN CELL VOLUME 83.9 fl (80-96); MEAN PLT VOLUME 8.4 fl (7.5-11.1); MONO % 6.1 % (3.8-10.2); NEUT % 67.9 % (42.8-82.8); PLATELET COUNT 216 10^3/uL (134-434); WHITE BLOOD COUNT 11.6 K/mm3 (4.0-10.0)
[2023-05-15 20:20] LABS: CHLORIDE 106 mmol/L (98-107); SODIUM 135 mmol/L (136-145)
[2023-05-15 20:22] LABS: ALBUMIN 3.9 g/dl (3.4-5.0); CALCIUM 9.1 mg/dL (8.5-10.1); CO2 24 mmol/L (21-32)
[2023-05-15 20:23] LABS: BLOOD UREA NITROGEN 8.7 mg/dL (7-18); GLUCOSE,RANDOM 97 mg/dL (74-106)
[2023-05-15 20:25] LABS: SGPT/ALT 36 U/L (13-61)
[2023-05-15 20:26] LABS: CREATININE 0.8 mg/dL (0.55-1.3); SGOT/AST 64 U/L (15-37)
[2023-05-15 20:27] LABS: BILIRUBIN,TOTAL 1.1 mg/dL (0.2-1); TOT PROT 7.9 g/dl (6.4-8.2)
[2023-05-15 20:28] LABS: ALK PHOS 83 U/L (45-117)
[2023-05-15 20:35] LABS: ANION GAP 5 mmol/L (4-13); POTASSIUM 7.7 mmol/L (3.5-5.1)
[2023-05-15] MEDS ORDERED: metroNIDAZOLE 250 MG TABLET ONE (22:16)
[2023-05-15] MEDS: metroNIDAZOLE 250 MG TABLET PO ONE (22:19)
[2023-05-15] MEDS: CIPROFLOXACIN 500 MG TABLET (RESTRICTED TO ID) PO ONE (22:29)
[2023-05-15 22:36] VITALS: BP 126/85; PULSE 75; RESP 16
== END 2023-05-15 22:44 | disposition home or self-care (01) ==
LOC: JER 18:22 → JERFT 18:22
PROC: 3E033GC Introduction of Other Therapeutic Substance into Peripheral Vein, Percutaneous Approach (ICD-10-PCS; principal; 2023-05-15)
DX: K57.92 Diverticulitis of intestine, part unspecified, without perforation or abscess without bleeding (principal); R53.83 Other fatigue; R10.30 Lower abdominal pain, unspecified; R11.0 Nausea; Z20.822 Contact with and (suspected) exposure to COVID-19
CPT/HCPCS: 0241U-QW; 36415; 74177-TC; 80053; 81003; 84132; 85025; 87086; 99285-25; J0131

== ENCOUNTER 2023-07-11 05:00 | Day surgery (SDC) | payer OTHER ==
[2023-07-10 12:12] VITALS: BMI 24.1
[2023-07-11 10:53] VITALS: TEMP 97.5
[2023-07-11 11:49] VITALS: BP 112/58; PULSE 63; RESP 12
== END 2023-07-11 11:49 | disposition home or self-care (01) ==
LOC: JASU-ENDO 05:00
PROVIDERS: ATTEND Internal Medicine Gastroenterology
PROC: 0DJD8ZZ Inspection of Lower Intestinal Tract, Via Natural or Artificial Opening Endoscopic (ICD-10-PCS; principal; 2023-07-11 10:00)
DX: Z12.11 Encounter for screening for malignant neoplasm of colon (principal); K64.8 Other hemorrhoids; K64.4 Residual hemorrhoidal skin tags; K59.89 Other specified functional intestinal disorders